=== PATIENT | male | born 1985 | race Caucasian/White ===

== ENCOUNTER 2020-05-29 16:31 | Outpatient (REF) | payer OTHER, SELFPAY ==
--- NOTE | 2020-05-29 | XR_ITS ---
EXAMINATION: XR LUMBOSACRAL SPINE WITH OBLIQUES CLINICAL INFORMATION: Lumbago. COMPARISON: None TECHNIQUE: AP, both oblique, and lateral views of the lumbar spine. Lateral view of the lumbosacral junction. FINDINGS: There are 6 lumbar type vertebral bodies. Articulated transverse processes on the first lumbar type vertebral bodies suggests that these could represent small rudimentary ribs at T12. There is normal anatomic alignment. Minimal spondylosis is seen at L3-L4 and L4-L5 with small marginal osteophytosis. No significant disc space narrowing. Posterior elements are intact with no spondylolysis or other abnormality demonstrated. XR/XR lumbar spine 4V min IMPRESSION: Minimal spondylosis L3-L4 and L4-L5. Otherwise unremarkable.
[2020-05-29 17:04] LABS: MANUAL DIFF FLAG NO
[2020-05-29 17:05] LABS: Basophils Percent Auto 0.4 % (0-2); Eosinophils Absolute Auto 0.1 X10*3/uL (0.0-0.4); Eosinophils Percent Auto 1.1 % (0-4); Hematocrit 44.4 % (42-52); Hemoglobin 14.9 g/dl (14.0-18.0); Imm Gran Abs Auto 0.03 X10*3/uL (0.00-0.03); Imm Gran Pct Auto 0.4 % (0.0-0.4); Lymphocytes Absolute Auto 2.8 X10*3/uL (1.2-4.9); Lymphocytes Percent Auto 36.5 % (20-40); Mean Corpuscular HGB Conc 33.6 g/dl (31.0-36.0); Mean Corpuscular Volume 89.3 fL (80-98); Monocytes Absolute Auto 0.6 X10*3/uL (0.1-1.2); Monocytes Percent Auto 7.8 % (2-11); Neutrophils Absolute Auto 4.1 X10*3/uL (2.0-8.3); Neutrophils Percent Auto 53.8 % (45-73); Platelet Count 301 X10*3/uL (160-400); Red Blood Count 4.97 X10*6/uL (4.60-5.80); Red Cell Distribution Width 12.4 % (11.0-16.0); White Blood Count 7.5 X10*3/uL (4.8-10.8)
[2020-05-29 17:35] LABS: Alanine Aminotransferase 22 U/L (0-40); Albumin Level 4.7 g/dL (3.5-5.0); Alkaline Phosphatase 80 U/L (39-117); Aspartate Amino Transferase 19 U/L (5-37); Bilirubin Direct < 0.2 mg/dL (0.0-0.5); Bilirubin Total 0.4 mg/dL (0.0-1.0); Cholesterol 215 mg/dL; HDL Cholesterol 43 mg/dL; LDL Cholesterol Calculated 112 mg/dl; Total Protein 7.6 g/dL (6.5-8.0); Triglycerides 301 mg/dL
[2020-05-29 17:54] LABS: Vitamin D 25-OH Total 10.4 ng/mL (>30)
[2020-05-30 06:51] LABS: Estimated Average Glucose 97 mg/dL
[2020-06-01 08:26] LABS: HIV AB/AG Nonreactive (Nonreactive); HIV Num 1 0.07 S/CO (0.00-0.99)
== END 2020-05-29 16:32 | disposition home or self-care (01) ==
LOC: HO.LAB 16:31
PROVIDERS: PCP Internal Medicine; Visit Provider Internal Medicine
DX: Z00.00 Encounter for general adult medical examination without abnormal findings (principal); M54.41 Lumbago with sciatica, right side; M54.42 Lumbago with sciatica, left side
CPT/HCPCS: 36415; 72110; 80061; 80076; 82306; 83036; 85025; 87389

== ENCOUNTER 2021-12-17 10:00 | Outpatient (RCR) | payer BC, SELFPAY | END 2022-01-18 10:23 | disposition home or self-care (01) | LOC: HO.PTCHIC 10:00 | PROVIDERS: PCP Internal Medicine; Visit Provider Internal Medicine | DX: M54.42 Lumbago with sciatica, left side (principal) | CPT/HCPCS: 97110; 97161 ==

== ENCOUNTER 2023-07-06 13:56 | Outpatient (AMB) | payer BC, SELFPAY ==
--- NOTE | 2023-07-06 14:19 | A.SPINEOV_ITS ---
Intake Intake Visit Reasons: second opinion Intake Note: Mr. Latham is here today for a second opinion. 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 Apparently he was working doing some kind of lifting and felt acute pain in the center of his low back. He would have flare-ups from time to time. 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 At that time he also started to experience pain going down his right leg into his outer ankle. Underwent physical therapy as well as a few epidural injections. The epidural injections did work for a few months but ultimately the back pain persisted. The leg pain is really not all that bothersome in the sense that it does not keep him from doing most of the things he wants to do, rather it is the episodic in daily acute on chronic flare-ups that are making him at a point where he is unable to do many of the activities that are meaningful to his life including work. He does use ibuprofen and nabumetone. He went to Dr. avelar and Dr Mina at [facility]. Dr. Avelar was going to do a microdiskectomy. suggested something along the lines of either a disc replacement or anterior fusion. He went as far as going to see the access surgeon Dr. No , but after having a discussion about possible complications with the anterior approach the patient decided he wanted to get another opinion to see if there was anything else that could be done. He was referred to us for an evaluation. PMH: He is otherwise healthy, denies any medical history or any other medical p roblems. Social hx: He does not smoke, occasionally drinks alcohol, no marijuana or recreational drugs Medications: Nabumetone and ibuprofen Allergies: None Physical exam: No focal deficits Imaging review: Lumbar MRI done in January of 2023 shows multilevel degenerative disc disease with disc degeneration at L3-4, L4-5 and L5-S1. On the left at L4-5 there has a large left-sided disc herniation compressing the left L5 nerve root. There is no spondylolisthesis or misalignment seen on the imaging. Impression: 38-year-old male presents to the office today for 2nd opinion on degenerative disc disease and centralized low back pain in the middle of his back. He has acute on chronic flare-ups. He has daily discomfort but when he is in middle of a flare-up it will put him down for 2 or 3 days where he is basically not functional. He does have a component of right leg pain but it is not really the reason he is here today. He was told at [facility] by that he could consider a microdiskectomy as a 1st step, but was told that it would not do anything to affect his back pain but rather would be to treat his leg pain. I am a little confused that this because the pain is on his right leg and the disc herniation is on the left. The patient chose to get another opinion in the same office by who was a bit more aggressive and wanted to consider either disc replacement or fusion surgery through an anterior approach. The patient did consider this, but after speaking with who does the access for surgery, risks and complications were discussed including retrograde ejaculation and the patient thought that he would get another opinion as to whether there were other less invasive options. He is here in the office today and we did discuss the fact that he has multilevel degenerative disc disease including the disc herniation on the left at L4-5. We also discussed the fact that back pain can be very difficult to treat surgically when a patient has diffuse degenerative disc disease. The primary thing that seems different than all the other issues with his discs is the herniation on the left at L4-5 as a possible culprit causing his back pain. We know that disc herniations however can resolve on their own, so before I can make any kind of accurate opinion on the status of things I will need an updated lumbar MRI because his MRI was done almost 6 months ago. I will order that and have him come back to the office for an evaluation. Thank you for allowing us to care for your patient. The total time spent with this visit with this patient was 45 minutes reviewing history, physical exam, lumbar imaging review, and implementation of treatment plan or further diagnostic testing Matias De La Vega MD,PhD [facility] Coding Level of Care Code New Pt Level 4 (48702) Diagnoses Lumbar disc herniation M51.26
== END 2023-07-06 15:07 | disposition home or self-care (01) ==
PROVIDERS: PCP Internal Medicine; Visit Provider Physician Assistant
DX: M51.26 Other intervertebral disc displacement, lumbar region (principal)
CPT/HCPCS: 99204

== ENCOUNTER → 2023-07-06 13:56 | Outpatient (BNVA) | payer BC, SELFPAY | PROVIDERS: PCP Internal Medicine; Visit Provider Physician Assistant ==

== ENCOUNTER 2024-03-11 13:35 | Outpatient (AMB) | payer MEDICAID, SELFPAY ==
--- NOTE | 2024-03-11 13:39 | A.SPINEOV_ITS ---
Intake Visit Reasons: Bilateral low back pain Intake Note: Mr. Noa Reynoso is here today to F/u on MRI and his bilateral low back pain. Waste Picker Required: No Assessment & Plan Assessment & Plan (1) Lumbar disc herniation: Code(s): M51.26 - Other intervertebral disc displacement, lumbar region Category: Medical Plan Mr Noa Reynoso comes back in the office today for follow-up. He underwent an anterior lumbar interbody fusion with this June after seeing us for a 2nd opinion. At that time he had a herniated disc at L4-5. He underwent the procedure, was sent home the same day. He did well in terms of improvement of his back pain in his leg pain but he just has not seen the kind of success that he was hoping for. 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 He knows that he had other disc bulging in his back prior to the surgery in addition to the herniated disc. His surgeon has told him that the x-rays look okay and that the surgery components look fine. Something in the back of his mind those little worried about the amount of pain he is still in. He has been doing physical therapy, takes [id number]-cohtigo medications and anti-inflammatories if needed. The dry needling at the therapy seems to help the most. I went back and looked at his preoperative MRI done at [facility] and indeed he did have disc bulging at L3-4 and L5-S1. I explained to him that back pain is a complicated symptom and that often the explanation is not disc bulging, and these things can be normal findings, even in asymptomatic patients. He is interested in having a follow-up MRI just to make sure there is nothing that has changed since the surgery. I do not get the sense that he was getting the answers he needed from [facility] so he came back to us to re- evaluate. I told him I would gladly order a new MRI to assess the situation but that I would not have expected much to have changed around the surgery area in terms of the degenerative disc bulging that he had before surgery. I can call him with the results. Total amount of time spent in this visit was 20 minutes in discussion of symptoms, lumbar imaging results and subsequent plan of care Matias De La Vega MD,PhD [facility] Coding Level of Care Code Est Pt Level 3 (81089) Diagnoses Lumbar disc herniation M51.26
== END 2024-03-11 14:52 | disposition home or self-care (01) ==
LOC: HO.HNS 13:36
PROVIDERS: PCP Internal Medicine; Visit Provider Physician Assistant
DX: M51.26 Other intervertebral disc displacement, lumbar region (principal)
CPT/HCPCS: 99213

== ENCOUNTER → 2024-03-11 13:35 | Outpatient (BNVA) | payer MEDICAID, SELFPAY | PROVIDERS: PCP Internal Medicine; Visit Provider Physician Assistant | DX: M51.26 Other intervertebral disc displacement, lumbar region (principal) | CPT/HCPCS: 99212 ==

== ENCOUNTER 2024-10-11 13:47 | Outpatient (REF) | payer MEDICAID, SELFPAY ==
--- OUTSIDE RECORDS SUMMARY | 2024-10-11 13:59 | XMS_ITS ---
Author Name [facility] Organization Unknown Encounters Encounter Type Encounter Reason Primary Diagnosis Location Date Ambulatory [facility] [place] 10/02/2024
[2024-10-11 17:02] LABS: MANUAL DIFF FLAG NO
[2024-10-11 17:21] LABS: Basophils Absolute Auto 0.1 X10*3/uL (0.0-0.2); Basophils Percent Auto 0.5 % (0-2); Eosinophils Absolute Auto 0.1 X10*3/uL (0.0-0.4); Eosinophils Percent Auto 0.8 % (0-4); Hematocrit 48.8 % (42.0-52.0); Hemoglobin 16.7 g/dl (14.0-18.0); Imm Gran Abs Auto 0.03 X10*3/uL (0.00-0.03); Imm Gran Pct Auto 0.3 % (0.0-0.4); Lymphocytes Absolute Auto 2.3 X10*3/uL (1.2-4.9); Lymphocytes Percent Auto 22.2 % (20-40); Mean Corpuscular HGB Conc 34.2 g/dl (31.0-36.0); Mean Corpuscular Volume 90.5 fL (80.0-98.0); Mean Platelet Volume 9.2 fL (9.4-12.4); Monocytes Absolute Auto 0.9 X10*3/uL (0.1-1.2); Monocytes Percent Auto 8.5 % (2-11); Neutrophils Percent Auto 67.7 % (45-73); Platelet Count 338 X10*3/uL (160-400); Red Blood Count 5.39 X10*6/uL (4.60-5.80); Red Cell Distribution Width 12.1 % (11.0-16.0); White Blood Count 10.3 X10*3/uL (4.8-10.8)
[2024-10-11 17:24] LABS: Alanine Aminotransferase 28 U/L (0-40); Albumin Level 4.8 g/dL (3.5-5.0); Anion Gap 11 (12-20); Aspartate Amino Transferase 28 U/L (5-37); Bilirubin Total 0.3 mg/dL (0.0-1.0); Blood Urea Nitrogen 18 mg/dL (9-16); Calcium 9.8 mg/dL (8.4-10.2); Carbon Dioxide 26 mmol/L (22-29); Chloride 105 mmol/L (96-108); Estimated Glomerular Filt Rate > 60; Glucose Random 83 mg/dL (60-115); Potassium 4.4 mmol/L (3.3-5.1); Sodium 138 mmol/L (135-145); Total Protein 7.6 g/dL (6.5-8.0)
[2024-10-11 17:53] LABS: Alkaline Phosphatase 86 U/L (39-117)
== END 2024-10-11 13:48 | disposition home or self-care (01) ==
LOC: HO.HHCL 13:47
PROVIDERS: Visit Provider Student in an Organized Health Care Education/Training Program
DX: M54.16 Radiculopathy, lumbar region (principal)
CPT/HCPCS: 36415; 80053; 85025